=== PATIENT | female | born 1945 | race Caucasian/White ===

== ENCOUNTER → 2023-05-04 12:51 | Outpatient (BNVA) | payer MEDICARE, SELFPAY | PROVIDERS: PCP Physician Assistant Medical; Referring Provider Physician Assistant Medical; Visit Provider Student in an Organized Health Care Education/Training Program | DX: R05.3 Chronic cough (principal); J84.10 Pulmonary fibrosis, unspecified; J45.909 Unspecified asthma, uncomplicated | CPT/HCPCS: 36415; 99205 ==

== ENCOUNTER 2023-05-04 14:41 | Outpatient (REF) | payer MEDICARE, SELFPAY ==
[2023-05-04 22:07] LABS: Rheumatoid Factor <8.6 IU/mL (<12.0)
[2023-05-07 10:05] LABS: Cyclic Citrullinated Peptide <2.5 U/mL (<5.0)
[2023-05-07 14:12] LABS: ANA Interpretation Positive (Negative)
[2023-05-09 16:17] LABS: Alter tenuis/alternata IgG <2.0 mcg/mL (<12.0); Aspergillus fumigatus IgG 4.5 mcg/mL (<46.0); Aureobasidium pullulans IgG <2.0 mcg/mL (<18.0); Laceyella sacchari IgG <2.0 mcg/mL (<25.0); Micropolyspora faeni IgG <2.0 mcg/mL (<5.0); Penicillium Chrysogenum IgG 4.3 mcg/mL (<22.0); Phoma betae IgG <2.0 mcg/mL (<8.0)
== END 2023-05-04 14:42 | disposition home or self-care (01) ==
LOC: LBN 14:41
PROVIDERS: PCP Physician Assistant Medical; Visit Provider Student in an Organized Health Care Education/Training Program
DX: J84.10 Pulmonary fibrosis, unspecified (principal); J45.909 Unspecified asthma, uncomplicated
CPT/HCPCS: 86001; 86200; 86038; 86431

== ENCOUNTER → 2023-06-29 10:44 | Outpatient (BNVA) | payer MEDICARE, SELFPAY | PROVIDERS: PCP Physician Assistant Medical; Referring Provider Physician Assistant Medical; Visit Provider Student in an Organized Health Care Education/Training Program | DX: R09.82 Postnasal drip (principal); J31.0 Chronic rhinitis; J84.10 Pulmonary fibrosis, unspecified; J45.909 Unspecified asthma, uncomplicated | CPT/HCPCS: 99214 ==